=== PATIENT | female | born 1970 | race Caucasian/White ===

== ENCOUNTER 2019-04-17 09:33 | Inpatient (IN) ==
--- NOTE | 2019-04-17 10:18 | Diag Imaging Result Doc PS360 ---
EXAM: CHEST-2 VIEWS INDICATION: fever TECHNIQUE: 2 views COMPARISON: 05/10/2018 FINDINGS: The lungs are grossly clear. There is no discrete pleural fluid collection or pneumothorax. The cardiomediastinal silhouette and central vasculature are grossly unremarkable. IMPRESSION: No evidence of acute pathology by plain radiograph. Electronically signed by Beto Dean 04/17/2019 10:16 AM
--- NOTE | 2019-04-17 10:24 | PROVIDER DOCUMENTATION ---
HPI-General Adult - General Chief Complaint: Abnormal Lab[s] Stated Complaint: DR CREWS REF-LOW PLATELETS Time Seen by Provider: 04/17/19 09:57 Source: patient, family Allergies/Adverse Reactions: Patient Allergies Allergy/AdvReac Type Severity Reaction Status Date / Time Iodinated Contrast Media AdvReac ANAPHYLAXIS Verified 04/17/19 10:40 [Iodinated Contrast Media - IV Dye] sulfamethoxazole AdvReac Unknown Verified 04/17/19 10:40 [From Septra] trimethoprim [From Septra] AdvReac Unknown Verified 04/17/19 10:40 Home Medications: Home Medication List Medication Instructions Recorded Confirmed Last Taken Type Atorvastatin Calcium [Lipitor] 20 mg PO DAILY 11/08/15 08/10/17 08/08/17 08:00 History Buspirone [Buspar] 10 mg PO TID 11/08/15 08/10/17 08/08/17 08:00 History Clonazepam [Klonopin] 1 mg PO TID 11/08/15 08/10/17 08/08/17 08:00 History Fludrocortisone [Florinef] 2 tab PO TID 11/08/15 08/10/17 08/08/17 08:00 History Folic Acid 1 tab PO DAILY 11/08/15 08/10/17 08/08/17 08:00 History Levothyroxine Sodium [Synthroid] 1 tab PO DAILY@0600 11/08/15 08/10/17 08/08/17 08:00 History Metoprolol Succinate E.r. [Toprol 25 mg PO DAILY 11/08/15 08/10/17 08/08/17 History Xl] Tizanidine HCl [Zanaflex] 2 tab PO BID 11/08/15 08/10/17 08/08/17 20:00 History Topiramate [Topamax] 100 mg PO DAILY 11/08/15 08/10/17 08/08/17 20:00 History Oxycodone HCl/Acetaminophen 7.5 mg PO Q8HR PRN 08/09/17 08/10/17 08/08/17 12:00 History [Percocet 7.5-325 mg Tablet] Zolpidem Tartrate 10 mg PO HS 08/09/17 08/10/17 08/08/17 19:30 History Butalbital/APAP/Caffeine [Fioricet] 1 each PO PRN PRN 08/10/17 08/10/17 Unknown History Clonidine HCl 1 tab PO DIRECTED PRN 08/10/17 08/10/17 Unknown History Droxidopa [Northera] 300 mg PO TID 08/10/17 08/10/17 Unknown History Pregabalin [Lyrica] 1 cap PO TID 08/10/17 08/10/17 Unknown History Promethazine HCl 1 tab PO PRN PRN 08/10/17 08/10/17 Unknown History Venlafaxine HCl [Venlafaxine HCl 1 cap PO DAILY 08/10/17 08/10/17 Unknown History ER] Acidophilus/Bulgaricus [Lactinex] 1 ea PO BID #14 packet 08/12/17 Unknown Rx Amoxicillin/Pot Clavulanate 875 mg PO BID #14 tab 08/12/17 Unknown Rx [Augmentin] Ciprofloxacin HCl [Cipro] 500 mg PO Q12H #14 tab 08/12/17 Unknown Rx Cyclobenzaprine [Flexeril] 10 mg PO TID #20 tab 08/12/18 Unknown Rx Ibuprofen 800 mg PO TID 10 Days #30 tab 08/12/18 Unknown Rx Tramadol [Ultram] 50 mg PO Q8HR #20 tab 08/12/18 Unknown Rx - History of Present Illness -Gen Adult Nature of Presenting Problems: 48yof presents to ED c/o fatigue and easy bruising x1 week. States she started having Fever (Tmax 102F) yesterday, then saw Dr. Crews today (her anemia doctor) and was referred to ED due to platelet level 11. She denies chills/N/V/D/cough/dysuria. PCP is Dr. Gracia. Location of Pain/Injury: reports: upper extremity Pain Radiation: reports: no radiation Quality of Pain: reports: aching Severity: reports: moderate Onset/Duration: reports: gradual, 1 week ago Timing: reports: still present Context/Activities at Onset: reports: none Modifying Factors: improves with: nothing Associated Symptoms: reports: fatigue, fever/chills, other (easy bruising) Similar Symptoms Previously?: No Recently seen or treated by another doctor?: Yes (Dr. Crews's office this AM and referred to ED) Review of Systems - Adult - REVIEW OF SYSTEMS - ADULT Constitutional: reports: see HPI, fever, fatique Eyes: reports: no symptoms reported Ears, Nose, Mouth & Throat: reports: no symptoms reported Cardiovascular: reports: no symptoms reported Respiratory: reports: no symptoms reported Gastrointestinal: reports: no symptoms reported Genitourinary: reports: no symptoms reported Musculoskeletal: reports: no symptoms reported Integumentary: reports: see HPI, other (easy bruising) Neurological: reports: no symptoms reported Psychiatric: reports: no symptoms reported Endocrine: reports: no symptoms reported Hematologic/Lymphatic: reports: no symptoms reported Allergic/Immunologic: reports: no symptoms reported All Other Systems: Reviewed and Negative Past History - Adult - PAST MEDICAL HISTORY-ADULT Review of Records: reports: Old Records Reviewed, Nursing Assessment Review, Medications Reviewed Major Childhood Illnesses: reports: denies history Cardiovascular: reports: A-Fib, arrhythmia (SVT; a flutter), HTN, hyperlipidemia Respiratory: reports: denies history, asthma Gastrointestinal: reports: denies history Obstetrical/Gynecological: reports: denies history Genitourinary: reports: denies history Musculoskeletal: reports: arthritis (osteoarthritis), chronic pain, fibromyalgia , other (neuropathy) Neurological: reports: headaches/migraines, Seizures/Epilepsy, TIA Psychiatric: reports: anxiety, depression Endocrine/Immune: reports: anemia, thyroid disorder (hypo), other (dsyautonomia) Other Conditions: reports: denies history, other (dysautonomia) - PRIOR SURGERIES/PROCEDURES Surgical/Procedure History: reports: cholecystectomy, hysterectomy, tonsillectomy, gastric bypass (2004), other (cardiac ablation) - IMMUNIZATION STATUS Childhood Immunizations: UTD, See Nurse Assessment Flu Vaccine: See Nurse Assessment - FAMILY HISTORY Family History: reviewed, not pertinent - SOCIAL HISTORY Smoking: non-smoker Living Situation: family Physical Exam-General - PHYSICAL EXAM-ADULT Initial Vital Signs Reviewed: Yes - CONSTITUTIONAL General Appearance: appears well, alert, no apparent distress - EYES Eyes: PERRL/EOMI, pale conjunctivae - HEAD, EARS, NOSE, MOUTH & THROAT HENMT: normocephalic/atraumatic, moist mucous membranes, normal ENT inspection, TMs normal, pharynx normal - NECK Neck: non-tender, full range of motion, supple, normal inspection. negative: meningismus - RESPIRATORY Respiratory: chest non-tender, lungs clear, normal breath sounds - CARDIOVASCULAR Cardiovascular: normal peripheral pulses, regular rate, rhythm, no edema - GASTROINTESTINAL (ABDOMEN) Abdominal Exam: normal bowel sounds, non tender, soft, no organomegaly - LYMPHATIC Lymphatic: no adenopathy - MUSCULOSKELETAL Back Exam: normal inspection, no CVA tenderness Extremity: normal range of motion, non-tender, normal gait, other (multiple large areas of multiple age ecchymosis to BUE, BLE, palms) Peripheral Pulses: radial (R): 4+, radial (L): 4+ - SKIN Integumentary: normal turgor, warm/dry, ecchymosis, pallor - NEUROLOGIC Neurologic: inpatient auditor II-XII nml as tested, grossly normal, no motor/sensory deficits - PSYCHIATRIC Psych/Mental Status: normal mood/affect, normal thought content, normal thought process, oriented x 3 Progress - PLAN OF CARE/RESULTS Progress/Plan/Lab Results: Vital Signs - 8 hr 04/17/19 09:35 Temperature 98.6 F Pulse Rate 106 H Respiratory Rate 18 Blood Pressure 124/80 O2 Sat by Pulse Oximetry 100 Orders Category Date Time Status IV [Saline Loc] NOW Care 04/17/19 09:58 Active CHEST-2 VIEWS [RAD] Stat Exams 04/17/19 09:58 Completed BLOOD CULTURE [BLDCUL] Stat Lab 04/17/19 09:58 Uncollected CBC WITH DIFF [HEME] Stat Lab 04/17/19 09:58 Uncollected COMPREHENSIVE METABOLIC PANEL [CHEM] Stat Lab 04/17/19 09:58 Uncollected INFLUENZA SCREEN A/B Stat Lab 04/17/19 09:58 Uncollected LACTATE, PLASMA [CHEM] Stat Lab 04/17/19 09:58 Uncollected PROTIME WITH INR [COAG] Stat Lab 04/17/19 09:58 Uncollected PTT [COAG] Stat Lab 04/17/19 09:58 Uncollected TYPE & SCREEN [BBK] Stat Lab 04/17/19 09:58 Uncollected URINALYSIS W/POSS RFLX CULT [URINALYSIS] Stat Lab 04/17/19 09:58 Uncollected Result Diagrams: 04/17/19 11:25 04/17/19 11:25 - REASSESSMENT Reassessment #1 Time Reassessed: 13:12 (Spoke with Dr. Crews, he recommends admit to Dr. Gracia with added orders to include [address] Gracia for primary admit.) Reassessment #2 Time Reassessed: 13:13 (Discussed pt with Dr. Bolton, he agrees with admit plan and transfuse with 1 unit Platelets.) Reassessment #3 Time Reassessed: 13:21 (Discussed pt with Dr. Gracia, he agrees with admit plan and is already in touch with Dr. Crews regarding patient.) Departure - Departure Date of Disposition Decision: 04/17/19 Time of Disposition Decision: 13:13 DIAGNOSIS: Temporary low platelet count, Hypokalemia Disposition: ADMITTED INPATIENT 09 Certified Medical Emergency: Emergent Condition: Stable Referrals and Follow-Ups: Cathy Gracia MD [Primary Care Provider] - - Critical Care Note This patient required my direct & personal management of CC.: Yes Total Time (mins): 35 Critical Care Statement: This patient required my direct personal management to treat or rule out processes, the absence of which, could potentiallly result in sudden, clinically significant life or limb threatening deterioration. Attestation - Physician/ CHAKA Attestation Patient care was provided by Advanced Practice Provider:: Yes Advanced Practice Provider:: Mariana Canales Advanced Practice Provider documentation review:: The Mid-level provider documentation, treatment plan and medical decision making was reviewed by the physician who agrees with all treatment and medical decision making by the MLP. The physician spent face to face time with patient:: No Advanced Practice Provider documentation review:: Supervising physician onsite and consulted in the evaluation and care of this patient. The physician did not have a face to face encounter with the patient.
[2019-04-17 11:22] LABS: URINE SOURCE CLEAN CATCH
[2019-04-17 11:40] LABS: BILIRUBIN URINE NEGATIVE (NEGATIVE); BLOOD URINE SMALL (NEGATIVE); COLOR YELLOW; GLUCOSE URINE NEGATIVE (NEGATIVE); KETONE URINE NEGATIVE (NEGATIVE); LEUKOCYTES URINE NEGATIVE (NEGATIVE); NITRITE URINE NEGATIVE (NEGATIVE); PROTEIN URINE 50 mg/dL (NEGATIVE); SP GRAVITY URINE 1.015; TURBIDITY URINE CLEAR (CLEAR); UROBILINOGEN URINE 3 mg/dL (NORMAL)
[2019-04-17 11:41] LABS: UR EPITHELIAL CELLS <10 /HPF (<10); URINE BACTERIA NEGATIVE /HPF; URINE RBC <10 /HPF (<10); URINE WBC <10 /HPF (<10)
[2019-04-17 11:50] LABS: PTT 34.7 Seconds (22.3-41.8)
[2019-04-17 11:55] LABS: INR 1.49; PROTIME 18.3 Seconds (11.0-16.0)
[2019-04-17 11:56] LABS: AGAP 12; ALBUMIN 4.1 g/dL (3.5-5.0); ALKALINE PHOSPHATASE 146 U/L (32-104); BUN 8 mg/dL (8-22); CALCIUM 8.1 mg/dL (8.8-10.2); CHLORIDE 101 mmol/L (98-107); COSMO 276; CREATININE 0.7 mg/dL (0.5-0.9); ESTIMATED GFR > 60; GLUCOSE 108 mg/dL (70-104); GOT 35 U/L (10-30); GPT 17 U/L (10-36); POTASSIUM 2.7 mmol/L (3.5-5.1); SODIUM 139 mmol/L (136-145); TCO2 26 mmol/L (25-35); TOTAL BILIRUBIN 0.38 mg/dL (0.20-1.00); TOTAL PROTEIN 6.2 g/dL (6.3-8.3)
[2019-04-17 12:01] LABS: HEMATOCRIT 26.4 % (37.0-47.0); HEMOGLOBIN 9.2 g/dL (12.0-16.0); MCH 31.2 PG (27-31); MCHC 34.8 g/dL (33-37); MCV 89.5 FL (81-99); PLT 10 X1000 (130-400); RBC 2.95 XMIL (4.2-5.4); RDW 15.3 % (11.5-14.5); WBC 11.85 X1000 (4.8-10.8)
[2019-04-17] MEDS ORDERED: KLOR-CON PO ONE ×2 (13:00→21:20)
[2019-04-17 13:10] LABS: NRBC 1 % (0-0); SEGS 2 % (42-75)
[2019-04-17 13:11] LABS: ATYPICAL LYMPH 20 %; LYMPHS 20 % (21-51)
[2019-04-17] MEDS ORDERED: TYLENOL PO ONE (14:16)
[2019-04-17] MEDS ORDERED: ZOFRAN PO PRN (16:01)
[2019-04-17] MEDS ORDERED: NS 1,000 ML IV ONE (16:01)
[2019-04-17 18:50] LABS: BASO# 0.25 X1000 (0.0-0.2); BASO% 1.1 % (0.0-0.8); HEMOGLOBIN 10.1 g/dL (12.0-16.0); MCH 32.3 PG (27-31); MCHC 36.1 g/dL (33-37); MCV 89.5 FL (81-99); MPV 11.1 FL (7.4-10.4); PLT 43 X1000 (130-400); RBC 3.13 XMIL (4.2-5.4); RDW 15.6 % (11.5-14.5); WBC 23.33 X1000 (4.8-10.8)
[2019-04-17 19:28] LABS: BASO 1 % (0-1); LYMPHS 18 % (21-51); MONO 2 % (1-9); SEGS 3 % (42-75)
[2019-04-17] MEDS: NEURONTIN PO SCH (21:36)
[2019-04-17] MEDS: MELATONIN PO SCH (21:36)
[2019-04-17] MEDS: TYLENOL PO PRN (21:53)
--- NOTE | 2019-04-17 22:07 | HISTORY AND PHYSICAL ---
CHIEF COMPLAINT: Bruising of skin, bleeding in the urine, bleeding per rectum for the last 2 days. 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 Apparently has a skin bruising and seen Dr. Haynes this morning. The patient is also has some fever 101. Chest x- ray was stable. The patient was found to have thrombocytopenia 17,000. Prior CBCs were normal. She has been in her usual state of health. She has not changed any medications. Dr. Haynes referred to the emergency room. In the ER, patient was found to have elevated white cell count, potassium 2.7. The patient was given 1 unit of platelet transfusion. Repeat CBC. Platelet count has gone up to 43,000. At this time, she has been admitted to the hospital for: 1. Thrombocytopenia. 2. Fever. 3. Hypokalemia. 4. Bleeding in the urine and stool. Neurological exam is intact and as a result a hospital admission was warranted. Dr. Haynes has been consulted. PAST MEDICAL HISTORY: Common migraine, depression with anxiety, metabolic syndrome, hyperlipidemia, hypertension, hypothyroidism, depression, dysautonomia. PAST SURGICAL HISTORY: Tonsillectomy, gastric bypass surgery, cholecystectomy, hysterectomy. MEDICATIONS: Topamax 100 daily, metoprolol 25 daily, Synthroid 150 mcg daily, folic acid 1 mg daily, Florinef 0.1 two tablets t.i.d., Klonopin 0.5 t.i.d., BuSpar 10 t.i.d., Lipitor 20 daily, tizanidine 4 mg 2 tablets b.i.d., Ambien 5 at bedtime, Percocet 7.5 q.8, clonidine as needed, Caltrate 600 daily, vitamin B12 subcu once a month, Northera 200 mg t.i.d., AJOVY subcu once a month for the migraine prophylaxis, Neurontin 400 t.i.d., melatonin 10 daily, Effexor 75 daily, B complex 1 tablet daily, Fiorinal 5 q.6 as needed. ALLERGIES: Iodinated contrast and Bactrim. SOCIAL HISTORY: 20 years. Lives in [place]. Disabled. No smoking. No alcohol. FAMILY HISTORY: Father of lung cancer at 60. Mother is 65 years old. HEALTH MAINTENANCE: Influenza was declined. Colonoscopy in 2014. Mammography 2019. REVIEW OF SYSTEMS: HEENT: No headache. No vision problem. No earache. No sore throat. Neck: No neck pain. No goiter. Cardiopulmonary: No chest pain, shortness of breath, PND, orthopnea. GI: No nausea or vomiting. Bleeding per rectum. : No history of hesitancy, frequency, dysuria. Skin: Bruising of skin. Musculoskeletal: No joint pain. Neurologic: No focal symptoms or weakness. PHYSICAL EXAMINATION: VITAL SIGNS: Temperature is 99.8 degrees, tachycardic. Vitals are stable. 5 feet 9.1, weighs 284 pounds. HEENT: Atraumatic, normocephalic. Pupils equal, react to light. TMs are normal. NECK: Supple. No lymphadenopathy. CHEST: Bilateral air entry. HEART: Sounds are regular. ABDOMEN: Belly is soft, obese, nontender. SKIN: Has multiple bruising note. No peripheral edema or cyanosis. NEUROLOGIC: No obvious neurological deficits. INVESTIGATIONS: CBC: White cell count 23, hematocrit 28, platelets 43,000, PT 18, INR 1.4. Sodium 139, potassium 2.7, chloride 101, BUN 8, creatinine 0.7, glucose 108. LFTs were normal. Urinalysis negative for infection. Blood cultures are pending. Flu test was negative. Chest x- ray: No evidence of infiltrate. ASSESSMENT AND PLAN: A 48-year-old white female admitted to the hospital with significant thrombocytopenia, precipitous drop associated with bleeding in the urine, bleeding in the stool, multiple skin bruises. PLAN: 1. We will check the hepatitis C, human immunodeficiency virus, lupus panel, folic acid and B12 and Dr. Haynes has been consulted. Transfused a single unit packed red transfusion. Significant improvement. 2. Continue to hold on aspirin products. 3. Could watch very closely symptoms for signs of bleeding. 4. If the hematocrit declines below 25, consider transfusion. 5. Fever, elevated white cell count. Panculture workup, urine cultures, blood cultures. Chest x- ray was stable. The patient did receive Levaquin a month ago. 6. Hypokalemia. Replace the potassium. Continue IV fluids. 7. Reconcile home medicines slowly. 8. History of dysautonomia. Continue to monitor the blood pressure and we will follow up. cc: MD ERIKA Kim
[2019-04-17] MEDS: AMBIEN PO SCH (22:15)
[2019-04-17] MEDS: PERCOCET-5 PO PRN (22:15)
[2019-04-17] MEDS: KLONOPIN PO SCH (22:15)
[2019-04-18] MEDS: SYNTHROID PO SCH ×2 (05:33→09:24)
--- NOTE | 2019-04-18 07:32 | EKG Report ---
Test Performed on : 04/18/2019 07:06:37 AM Test Reason : cp Blood Pressure : / mmHG Vent. Rate : 111 BPM Atrial Rate : 111 BPM P-R Int : 162 ms QRS Dur : 088 ms QT Int : 370 ms P-R-T Axes : 062 032 034 degrees QTc Int : 503 ms Sinus tachycardia. Otherwise normal ECG When compared with ECG of 10-MAY-2018 16:23, No significant change was found Unconfirmed Result
[2019-04-18 07:33] LABS: BASO# 0.05 X1000 (0.0-0.2); BASO% 0.3 % (0.0-0.8); EOS# 0.02 X1000 (0.0-0.7); EOS% 0.1 % (0.0-10.0); HEMATOCRIT 23.8 % (37.0-47.0); HEMOGLOBIN 8.2 g/dL (12.0-16.0); MCH 30.8 PG (27-31); MCHC 34.5 g/dL (33-37); MCV 89.5 FL (81-99); MPV 10.3 FL (7.4-10.4); RBC 2.66 XMIL (4.2-5.4); RDW 15.3 % (11.5-14.5); WBC 18.15 X1000 (4.8-10.8)
[2019-04-18 07:34] LABS: PLT 22 X1000 (130-400)
[2019-04-18 07:51] LABS: HEMOGLOBIN A1C 5.3 % (4.8-6.0)
[2019-04-18 08:08] LABS: LYMPHS 36 % (21-51); SEGS 4 % (42-75)
[2019-04-18 08:09] LABS: AGAP 16; ALB/GLOB RATIO 1.7; ALBUMIN 3.8 g/dL (3.5-5.0); ALKALINE PHOSPHATASE 136 U/L (32-104); BUN 7 mg/dL (8-22); CALCIUM 7.7 mg/dL (8.8-10.2); CHLORIDE 104 mmol/L (98-107); COSMO 278; CREATININE 0.7 mg/dL (0.5-0.9); ESTIMATED GFR > 60; GLUCOSE 113 mg/dL (70-104); GOT 37 U/L (10-30); GPT 16 U/L (10-36); POTASSIUM 3.4 mmol/L (3.5-5.1); SODIUM 140 mmol/L (136-145); TCO2 20 mmol/L (25-35); TOTAL BILIRUBIN 0.41 mg/dL (0.20-1.00); TOTAL PROTEIN 6.1 g/dL (6.3-8.3)
[2019-04-18] MEDS ORDERED: MARCAINE 0.5% PF ONE (08:15)
[2019-04-18] MEDS ORDERED: NUBAIN IV PRN (08:17)
[2019-04-18] MEDS ORDERED: KLOR-CON PO ONE (08:29)
[2019-04-18 08:36] LABS: FLOW CYTOMETERY SOURCE WHOLE BLOOD; LEUKEMIA LYMPHOMA BY FLOW REFERRED FOR TESTING
[2019-04-18] MEDS: NUBAIN IV PRN ×2 (08:39→16:56)
[2019-04-18] MEDS: TYLENOL PO PRN ×2 (08:40→18:09)
[2019-04-18] MEDS: BUSPAR PO SCH ×3 (09:19→20:49)
[2019-04-18] MEDS: EFFEXOR XR PO SCH (09:19)
[2019-04-18] MEDS: FOLIC ACID PO SCH (09:19)
[2019-04-18] MEDS: NEURONTIN PO SCH ×3 (09:19→20:49)
[2019-04-18] MEDS: KLONOPIN PO SCH ×3 (09:24→20:49)
[2019-04-18] MEDS ORDERED: CYANOCOBALAMIN SUBQ SCH (10:00)
[2019-04-18] MEDS ORDERED: GAMUNEX-C 10% IV SCH (12:45)
[2019-04-18] MEDS ORDERED: GAMUNEX C IV ONE (13:00)
[2019-04-18] MEDS ORDERED: DILUENT IV ONE (13:00)
[2019-04-18] MEDS: PERCOCET-5 PO PRN (13:34)
--- NOTE | 2019-04-18 13:45 | HEMO/ONC CONSULTATION ---
DATE: 04/18/2019 REASON FOR CONSULTATION: Thrombocytopenia. HISTORY OF PRESENT ILLNESS: This is a 48-year-old white female, who is a known patient of ours for the treatment of iron deficiency anemia, status post gastric bypass surgery. The patient's last office appointment was in August of this year. She had several no-shows and then return to the clinic yesterday with a complaint of increase of bruising, blood in her urine and per rectum for the last 2 days in the clinic. The patient's labs revealed severe thrombocytopenia at 17,000. Her LDH was 899. The patient was sent from our clinic to the ER for admission. In the ER, the patient was found to have an elevated white count, hypokalemia, as well as thrombocytopenia. She was given 1 unit of platelets. Repeat CBC post transfusion showed her platelets have increased to 43,000. However, this morning they were consumed and reduced to 22,000. PAST MEDICAL HISTORY: Common migraine, pressure with anxiety, embolic syndrome, hyperlipidemia, hypertension, hypothyroidism, depression, dysautonomia. SURGICAL HISTORY: Tonsillectomy, gastric bypass, cholecystectomy, hysterectomy. SOCIAL HISTORY: The patient denies smoking or drinking alcohol. ALLERGIES: Contrast, iodine and Bactrim. HOME MEDICATION: Topamax, metoprolol, Synthroid, folic acid, Florinef, Klonopin, BuSpar, Lipitor, tizanidine, Ambien, Percocet, clonidine, Caltrate, vitamin B 12, Northera, Ajovy, complex multivitamin, Fiorinal. REVIEW OF SYSTEM: The patient is positive for significant bruising, blood per rectum, hematuria, headache, muscle and back pain. All other systems are negative. PHYSICAL EXAMINATION: Vital Signs: Temperature 98.1 degrees, pulse rate 102, respiratory rate 19, blood pressure 153/80, O2 saturation 98% on room air, 4/10 pain. General: On physical examination, this patient does not appear to feel well. HEENT: Sclerae is anicteric. PERRLA. Oral mucosa is normal. Cardiovascular: Normal S1, S2. Heart rate and rhythm is regular and tachycardic. Cardiovascular: Lung sounds are clear to auscultation. Normal respiratory effort. Abdomen: Soft, protuberant, nontender. Skin: Multiple bruises in different stages of healing noted all over the patient's body. Neurological: Awake, alert, oriented x3. No focal motor deficits noted. Able to move all 4 extremities at will. LAB: WBCs 18.15, hemoglobin 8.2, hematocrit 23.8, platelet count 22,000, potassium 3.4, calcium 7.7, alkaline phosphatase 136. ASSESSMENT/PLAN: 1. Thrombocytopenia and leukocytosis. The patient has profound thrombocytopenia. Check Flow cytometry and bone marrow biopsy. She is status post 1 unit packed red blood cells. We will start Decadron 40 mg intravenous daily times 4 days, as well as IVIG 1 g/kg daily for 2 days. We will continue to monitor. Etiology is unclear at this time. 2. Normocytic anemia. The patient is bleeding due to thrombocytopenia. Continue to support with transfusions for hemoglobin less than 7. 3. Hypokalemia. Replete potassium. Continue medical management. 4. History of dysautonomia. Continue to monitor vital signs. Dictated by NATANAEL Loaiza for Winston Haynes MD cc: MD Scar Barajas MD MTDD
[2019-04-18] MEDS ORDERED: NS 250 ML ONE (15:54)
--- NOTE | 2019-04-18 16:35 | Diag Imaging Result Doc PS360 ---
EXAM: US ABDOMEN-COMPLETE 04/18/2019 HISTORY: check spleen TECHNIQUE: Abdominal ultrasound COMMENT: The pancreatic head is normal in appearance the remainder is obscured. Portions of the liver is very poorly seen. There are no definite abnormalities. The kidneys are without evidence of hydronephrosis or mass. There is antegrade flow in the portal vein. The visualized portions of the aorta and inferior vena cava are within normal limits. There is no evidence of biliary dilatation the common bile duct measuring 7 mm. The spleen is enlarged measuring over 15 cm. There are no abnormal fluid collections. The gallbladder is surgically absent. IMPRESSION: Splenomegaly. Electronically signed by Ulices Rodas 04/18/2019 4:33 PM
[2019-04-18] MEDS: DECADRON 40 MG in NS 50 ML IV SCH (17:54)
[2019-04-18] MEDS: GAMUNEX C IV SCH (18:32)
[2019-04-18] MEDS: DILUENT IV SCH (18:32)
[2019-04-18 20:12] LABS: BASO# 0.03 X1000 (0.0-0.2); BASO% 0.2 % (0.0-0.8); EOS# 0.02 X1000 (0.0-0.7); EOS% 0.1 % (0.0-10.0); HEMOGLOBIN 10.2 g/dL (12.0-16.0); MCH 31.2 PG (27-31); MCHC 35.2 g/dL (33-37); MCV 88.7 FL (81-99); MPV 9.7 FL (7.4-10.4); RBC 3.27 XMIL (4.2-5.4); RDW 15.4 % (11.5-14.5); WBC 17.49 X1000 (4.8-10.8)
[2019-04-18 20:13] LABS: PLT 28 X1000 (130-400)
[2019-04-18] MEDS ORDERED: SODIUM CHLORIDE 0.9% INJ SCH (20:30)
[2019-04-18] MEDS ORDERED: PROTONIX IV SCH (20:30)
[2019-04-18] MEDS: AMBIEN PO SCH (20:49)
[2019-04-18] MEDS: MELATONIN PO SCH (20:49)
--- NOTE | 2019-04-18 20:55 | PROGRESS NOTE ---
DATE: 04/18/2019 SUBJECTIVE: History was complicated. Events noted this morning, patient bruising extensively. She also had intermittent bleeding per rectum, fever 100. The patient was exhausted. Patient was seen by Dr. Haynes, who wants to do a bone marrow. We did review the peripheral smear. She has a lot of atypical lymphocytes, some smudge cells, no blasts were noted. The picture is still baffling at this time. We did review the PDR about the drug-induced thrombocytopenia of her long- term medications which include Northera and Ajovy. None of these medicines reported causing thrombocytopenia. Complains of sore throat, some lymph nodes. REVIEW OF SYSTEMS: The rest of the review of systems is normal. PHYSICAL EXAMINATION: Temperature is 100 degrees, tachycardic. Blood pressure is 160/79.HEENT: Some petechial hemorrhage noted of soft palate. No significant lymph nodes noted. Chest: Clear. Heart sounds are regular. Belly is soft, obese. No peripheral edema. Extensive skin bruises noted. LABORATORY DATA: White cell count 23, hematocrit 23.8, platelets 22,000, atypical lymphocytes noted. PT 18, INR 1.5. SMA 7: Potassium 3.4, glucose 131. A1c 5.3. Magnesium 2.2. Alkaline phosphatase and AST slightly high. B12, folic acid, thyroid function tests are normal. ASSESSMENT AND PLAN: 1. Fever, elevated white cell count, atypical lymphocytosis. (A.) So far, influenza is negative. Blood cultures, urine cultures are pending. Chest x-ray was negative. Questionable viral-induced fever, most likely rule out [place] virus and cytomegalovirus. [place] test was ordered, which was negative. Follow up on the titers. (B.) Ultrasound of the abdomen to check the spleen size. (C.) Transfusion of single units of platelets since ongoing bleeding. (D.) Hematocrit declined and consider 2 units of packed red blood cells. 2. Hypokalemia. Replace the potassium. 3. The patient is in a lot of pain and will give some Nubain. The patient has a migraine headache. She is not taking Fiorinal, instead she is on Fioricet. 4. Gastrointestinal prophylaxis with intravenous Protonix. 5. Hypothyroidism, on Synthroid. Hematology consult with Dr. Haynes. I spoke to him on the phone and it looked like more a destructive process than the bone marrow disease, and we will hold off the bone marrow biopsy until Monday. In the meantime, we will order flow cytometry and we will initiate empirically both steroids and IV gammaglobulin. The patient was seen again this evening after blood transfusion and 1 unit of platelet transfusion. We will check the CBC. I spoke to the patient twice and will follow up the labs in the morning. LEVEL OF DOCUMENTATION: 35 minutes. cc: Scar Gracia MD MTDD
[2019-04-18 21:00] LABS: NRBC 2 % (0-0)
[2019-04-18 21:05] LABS: LYMPHS 87 % (21-51); MONO 3 % (1-9)
[2019-04-18 21:25] LABS: SEGS 1 % (42-75)
[2019-04-18 21:30] LABS: HIV ANTIBODY SCREEN SEE COMMENTS
[2019-04-19] MEDS: NUBAIN IV PRN ×3 (00:58→18:40)
[2019-04-19] MEDS: PERCOCET-5 PO PRN (04:51)
[2019-04-19] MEDS: SYNTHROID PO SCH ×2 (04:52→06:49)
[2019-04-19 08:10] LABS: HEMATOCRIT 30.1 % (37.0-47.0); HEMOGLOBIN 10.3 g/dL (12.0-16.0); MCH 31.7 PG (27-31); MCHC 34.2 g/dL (33-37); MCV 92.6 FL (81-99); MPV 9.2 FL (7.4-10.4); PLT 22 X1000 (130-400); RBC 3.25 XMIL (4.2-5.4); WBC 26.09 X1000 (4.8-10.8)
[2019-04-19 08:29] LABS: AGAP 16; ALB/GLOB RATIO 1.5; ALKALINE PHOSPHATASE 127 U/L (32-104); BUN 9 mg/dL (8-22); CALCIUM 8.2 mg/dL (8.8-10.2); CHLORIDE 105 mmol/L (98-107); COSMO 276; CREATININE 0.8 mg/dL (0.5-0.9); ESTIMATED GFR > 60; GLUCOSE 125 mg/dL (70-104); GOT 38 U/L (10-30); GPT 15 U/L (10-36); POTASSIUM 4.3 mmol/L (3.5-5.1); SODIUM 138 mmol/L (136-145); TCO2 17 mmol/L (25-35); TOTAL BILIRUBIN 0.44 mg/dL (0.20-1.00); TOTAL PROTEIN 6.7 g/dL (6.3-8.3)
[2019-04-19 08:33] LABS: LYMPHS 30 % (21-51); SEGS 2 % (42-75)
[2019-04-19] MEDS: NEURONTIN PO SCH ×2 (08:33→14:41)
[2019-04-19] MEDS: EFFEXOR XR PO SCH (08:33)
[2019-04-19] MEDS: KLONOPIN PO SCH ×2 (08:33→14:41)
[2019-04-19] MEDS: BUSPAR PO SCH ×3 (08:33→18:40)
[2019-04-19] MEDS: DECADRON 40 MG in NS 50 ML IV SCH (08:33)
[2019-04-19] MEDS: FOLIC ACID PO SCH (08:33)
[2019-04-19] MEDS: GAMUNEX C IV SCH (09:41)
[2019-04-19] MEDS: DILUENT IV SCH (09:41)
[2019-04-19 11:37] LABS: HEPATITIS PROFILE ACUTE SEE COMMENTS
--- NOTE | 2019-04-19 12:41 | Diag Imaging Result Doc PS360 ---
CT HEAD W/O CONTRAST - 04/19/2019 INDICATION: AMS COMPARISON: 05/10/2018 FINDINGS: There are subtle acute on chronic bilateral subdural hemorrhages. There is some slight recent hemorrhage in the sylvian fissures bilaterally left greater than right. These spaces are not expanded. Otherwise the ventricles and sulci are normal. The skull is intact. The sinuses are clear. IMPRESSION: Very small bilateral acute on chronic subdural hemorrhages. This exam was performed using automated exposure control, adjustment of mA or kV according to patient size, and/or use of iterative reconstruction technique Electronically signed by Elgin Hamm 04/19/2019 12:39 PM
--- NOTE | 2019-04-19 12:53 | Diag Imaging Result Doc PS360 ---
CT ABDOMEN/PELVIS W/O CONTRAST - 04/19/2019 INDICATION: LUQ pain COMPARISON: 08/09/2017 FINDINGS: The lung bases are clear and the heart size is normal. Stable gastric bypass changes. There is splenomegaly. The spleen measures 15.5 x 8.6 cm. Otherwise all abdominal organs are normal. There is some stable nonspecific mesenteric edema with mild reactive mesenteric lymph nodes. No bowel obstruction or inflammation. No free air or free fluid. Uterus is absent. Urinary bladder and rectum are normal. There are moderate degenerative changes of the spine. No acute or suspicious bony lesion. IMPRESSION: Splenomegaly. Nonspecific mesenteric edema with reactive mesenteric nodes. This exam was performed using automated exposure control, adjustment of mA or kV according to patient size, and/or use of iterative reconstruction technique Electronically signed by Elgin Hamm 04/19/2019 12:50 PM
[2019-04-19] MEDS ORDERED: NS 500 ML IV ONE (14:08)
[2019-04-19] MEDS ORDERED: ATIVAN IV ONE (14:20)
[2019-04-19] MEDS: TYLENOL PO PRN (14:41)
--- NOTE | 2019-04-19 16:58 | HEMO/ONC PROGRESS NOTE ---
DATE: 04/19/2019 SUBJECTIVE: The patient is lying flat on her side in bed this morning. She continues to state that she does not feel well and that she has a headache. She continues to be symptomatic. She requests different pain medication. Her platelet counts have not started to rise yet. OBJECTIVE: Vital signs: Temperature 98.5 degrees, pulse rate 103, blood pressure 152/89, O2 saturation 100% on room air, is in 8/10 pain. General: An obese female who does not appear to be feeling well. She is very irritated. HEENT: Sclerae is anicteric. PERRLA. Oral mucosa is normal. Cardiovascular: Normal S1, S2. Heart rate and rhythm are regular and tachycardic. No murmurs, rubs, or gallops noted. Respiratory: Lung sounds are clear to auscultation. Normal respiratory effort. Gastrointestinal.: Abdomen protuberant, soft and nontender. Skin: Multiple bruises in different stages of healing noted all over the patient's body. Neurological: Awake, alert and oriented. No focal motor deficits noted. Patient does complain of headache that is difficult to relieve. Able to move all 4 extremities at will. LABORATORY: WBCs 26.09, hemoglobin 10.3, hematocrit 30.1, platelet count 22,000. Creatinine 0.8, alkaline phosphatase 127. Flow cytometry is positive for acute myeloid leukemia. RADIOLOGY: Head CT reveals very small bilateral subdural hemorrhages. Abdomen /Pelvis CT reveals Splenomegaly (16cm). Nonspecific mesenteric edema with reactive mesenteric nodes. ASSESSMENT AND PLAN: 1. Acute myeloid leukemia. The patient's flow cytometry revealed acute myeloid leukemia. We need to transfer the patient to [facility] for further management. 2. Thrombocytopenia. The patient has profound thrombocytopenia. She is status post 2 units packed red blood cells and 2 units of platelets. The patient has also had 1 dose of intravenous Decadron and 1 dose of intravenous immunoglobulin. Platelets this morning were 22,000. 3. Anemia. The patient is bleeding due to her thrombocytopenia. Continue to support with transfusions for hemoglobin less than 7. 4. Hypokalemia. The patient's potassium is repleted. It is normal today at 4.3. Continue medical management and monitoring. 5. History of dysautonomia. Continue to monitor the patient's vital signs. Dictated by NATANAEL Loaiza for Winston Haynes MD ERIKA
[2019-04-19 19:43] VITALS: BP 164/75
== END 2019-04-19 21:15 | disposition short-term general hospital (02) | DRG 834 ==
LOC: ED 09:33 → EDIPHOLD 09:33 → 3N 19:55
PROVIDERS: ADMIT Internal Medicine; ATTEND Internal Medicine